=== PATIENT | male | born 1945 | race Caucasian/White ===

== ENCOUNTER 2022-03-10 13:01 | Outpatient (CLI) | payer MEDICARE, BC, OTHER | END 2022-03-10 13:02 | disposition home or self-care (01) | LOC: CSHLAB 13:01 | PROVIDERS: ATTEND Internal Medicine | DX: Z20.822 Contact with and (suspected) exposure to COVID-19 (principal) | CPT/HCPCS: U0003; U0005 ==

== ENCOUNTER 2022-03-15 08:33 | Outpatient (CLI) | payer MEDICARE, BC, OTHER | END 2022-03-15 08:34 | disposition home or self-care (01) | LOC: CSHCT 08:33 | PROVIDERS: ATTEND Internal Medicine | DX: J47.9 Bronchiectasis, uncomplicated (principal); R94.2 Abnormal results of pulmonary function studies | CPT/HCPCS: 71250; 94060; 94726; 94729; 94760 ==